=== PATIENT | male | born 1970 | race Caucasian/White ===

== ENCOUNTER 2020-05-07 14:40 | Inpatient (IN) | payer OTHER ==
--- NOTE | 2020-05-07 15:26 | RAD ---
Exam: Chest one view HISTORY:Mental crisis. Unrestrained x4 days. Comparison: None FINDINGS: Cardiac silhouette: Normal Aorta: Unremarkable Pulmonary vessels: Normal Costophrenic angles: Clear LUNGS: No masses or consolidation. Scarring and/or atelectasis in the right lung base with minimal bl unting of the costophrenic angle. Pneumothorax: None Osseous abnormalities: None IMPRESSION: No acute cardiopulmonary process.
[2020-05-07 16:04] LABS: Hemoglobin 16.7 g/dL (14.0-18.0); Mean Corpuscular HGB CONC 33.8 g/dL (32.0-36.0); Mean Corpuscular Hemoglobin 31.2 pg (27.0-31.0); Mean Corpuscular Volume 92.4 fL (78.0-98.0); Mean Platelet Volume 6.6 fL (7.4-10.4); Platelet Count 260 thou/uL (130-400); RBC Distribution Width 13.6 % (11.5-14.5); Red Blood Cell (RBC) Count 5.34 mill/uL (4.70-6.10)
[2020-05-07 16:14] LABS: Bacteria/HPF None Seen HPF (None Seen); Bilirubin Negative (Negative); Blood, Urine Negative (Negative); Clarity Clear (Clear); Glucose, Urine (Dipstick) Normal (Negative); Ketone, Urine Greater than 150 mg/dL (Negative); Leukocyte Negative Leu/uL (Negative); Mucous/LPF Rare LPF (<2+); Nitrite Negative (Negative); Protein, Urine (Dipstick) 30 mg/dL (Neg-Trace); Specific Gravity, Urine 1.026 (1.002-1.036); Squamous Epithelial 0-3 HPF (0-3); WBC/HPF 0-3 HPF (0-3)
[2020-05-07 16:17] LABS: Band 7 % (5-11); Eosinophils 2 % (0-10); Lymphocytes 49 % (21-51); MDiff Complete? YES; Monocytes 8 % (0-10); Neutrophil 34 % (42-75); Platelet Morphology Comment Appears Adequate; RBC Morphology Normal
[2020-05-07 16:21] LABS: Medtox Reader # READER 4; Phencyclidine (PCP) Not Detected (NotDetected); THC/Cannabinoid Screen Not Detected (NotDetected)
[2020-05-07 16:22] LABS: Amphetamine Not Detected (NotDetected); Barbiturates Screen Not Detected (NotDetected); Benzodiazepine Screen Not Detected (NotDetected); Cocaine Metabolite Screen Not Detected (NotDetected); Medtox Control Line Valid? VALID (VALID); Methadone Not Detected (NotDetected); Methamphetamine Not Detected (NotDetected); Opiate Screen Not Detected (NotDetected); Oxycodone Screen Not Detected (NotDetected); Tricyclic Screen Not Detected (NotDetected)
[2020-05-07 16:29] LABS: Acetaminophen Less than 6.0 mcg/mL (10.0-30.0); Alcohol Less than 10 mg/dL (Less than 10); Salicylate Less than 8.0 mg/dL (15.0-30.0)
[2020-05-07 16:30] LABS: ALT (SGPT) 26 U/L (8-55); AST (SGOT) 42 U/L (5-34); Albumin 4.2 g/dL (3.5-5.0); Alkaline Phosphatase 112 U/L (40-110); Anion Gap 24 mmol/L (10-20); BUN (Urea Nitrogen) 18 mg/dL (8.9-20.6); Bilirubin, Total 0.9 mg/dL (0.2-1.2); Calc. Creatinine Clearance 0 mL/min (70-130); Calcium 9.6 mg/dL (7.8-10.44); Carbon Dioxide 14 mmol/L (22-29); Chloride 106 mmol/L (98-107); Estimated GFR-MDRD 66; Globulin 6.1 g/dL (2.4-3.5); Potassium 4.7 mmol/L (3.5-5.1); Protein, Total 10.3 g/dL (6.0-8.3); Sodium 139 mmol/L (136-145)
[2020-05-07 16:35] LABS: Glucose 54 mg/dL (70-105)
--- NOTE | 2020-05-07 17:24 | PDOC.HHP ---
Hospitalist HPI - History of Present Illness Hunger Strike History of Present Illness: Mr. 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 Pt reportedly stole a backpack, which he reports was a misunderstanding and that he "picked up the wrong backpack". Patient has been on a hunger strike for the past four days and has not had anything to eat, but is still drinking water. Pt reports that he has had AIDS for 25 years and has become resistant to most medications except for Truvada. He expresses extreme fear, crying that the stress of being in senior care will make his body reject the medications so he has stopped taking these as well so that he can "save them". Currently he denies any chest pain, SOB, abdominal pain. During interview patient persistently interrupts conversation to state "[place] gave me 100$ and needs me to help the homeless.". He denies SI/HI, despite hunger strike and states he "made a promise to show the officers this was only a misdemeanor". In the ED initial vital signs 136/92, 98, 18, 95% on RA> H/H 16.7/49.4, WBC 4.0. BUN/Cr 18/1.18. Na 139. K 4.7. Anion gap of 24. Urine positive for ketones. Lactic acid 1.4. Troponin <0.01. Pt received banana bag in ED. Patient evaluated by EMHR who determined that the pt needed to be medically cleared with appropriate treatment for his HIV and cachexia before psychiatric facility would accept. Hospitalist ROS - Review of Systems Constitutional: denies: fever, chills, sweats Eyes: denies: vision change ENT: denies: mouth pain Respiratory: denies: cough, shortness of breath, hemoptysis Cardiovascular: denies: chest pain, palpitations, orthopnea Gastrointestinal: reports: diarrhea. denies: nausea, vomiting Genitourinary: denies: dysuria Musculoskeletal: denies: neck pain Skin: denies: rash, lesions Neurological: denies: weakness, numbness, incoordination, seizures Other: ROS limited by patient's flight of ideas and delusions. - Medication Medications: Current medications include: Truvada Bactrim Multivitamin Isentress Ensure Chlorhexidine mouth wash NKDA Hospitalist History - Past Medical History Other Medical History: Past medical history includes: HIV, AIDS PCP HIV Retinitis Schizophrenia Homelessness Hepatitis C Hepatitis B Ulcerative Colitis Hematuria Anxiety Hypothyroidism - Past Surgical History Other Surgical History: Past surgical history includes R tibial surgery R eye surgery - Family History Other Family History: Pt not able to report family history - Social History Smoking Status: Former smoker Tobacco Type: cigarettes Alcohol: reports: None Drugs: reports: none (Reports former drug use) Living Situation: Homeless Activity level: independent ambulation - Exam General Appearance: awake alert General - other findings: Patient appears anxious, cachectic Eye: anicteric sclera Eye - other findings: R eye with clouding, pt is blind in R eye ENT: dry oral mucosa Neck: no JVD, no carotid bruit Heart: no murmur Heart - other findings: tachycardic Respiratory: CTAB, no wheezes, no rales, no ronchi, normal chest expansion, no tachypnea, normal percussion Gastrointestinal: soft, non-tender, non-distended, normal bowel sounds, no palpable masses, no hepatomegaly, no splenomegaly, no bruit Extremities: no cyanosis, no clubbing, no edema Skin: normal turgor, no lesions, no rashes Neurological: normal sensation to touch, no weakness, no focal deficits, no new deficit Musculoskeletal: generalized weakness, diffuse muscle atrophy Psychiatric: oriented to person (Denies SI/HI), oriented to place, oriented to time Psychiatric - other findings: Flight of ideas, persistent delusions, labile emotions, pressured speech Hospitalist Results - Labs Result Diagrams: 05/07/20 15:23 05/07/20 15:23 Lab results: WBC 4.0 thou/uL (4.8-10.8) L 05/07/20 15:23 Hgb 16.7 g/dL (14.0-18.0) 05/07/20 15:23 Hct 49.4 % (42.0-52.0) 05/07/20 15:23 MCV 92.4 fL (78.0-98.0) 05/07/20 15:23 Plt Count 260 thou/uL (130-400) 05/07/20 15:23 Band Neuts % (Manual) 7 % (5-11) 05/07/20 15:23 Sodium 139 mmol/L (136-145) 05/07/20 15:23 Potassium 4.7 mmol/L (3.5-5.1) 05/07/20 15: Chloride 106 mmol/L (98-107) 05/07/20 15: Carbon Dioxide 14 mmol/L (22-29) L 05/07/20 15: BUN 18 mg/dL (8.9-20.6) 05/07/20 15: Creatinine 1.18 mg/dL (0.7-1.3) 05/07/20 15: Glucose 54 mg/dL (70-105) L* 05/07/20: Lactic Acid 1.4 mmol/L (0.5-2.2) 05/07/20: Calcium 9.6 mg/dL (7.8-10.44) 05/07/20: Total Bilirubin 0.9 mg/dL (0.2-1.2) 05/07/20: AST 42 U/L (5-34) H 05/07/20: ALT 26 U/L (8-55) 05/07/20 15: Alkaline Phosphatase 112 U/L (40-110) H 05/07/20: Troponin I Less than 0.010 ng/mL (< 0.028) 05/07/20: Serum Total Protein 10.3 g/dL (6.0-8.3) H 05/07/20: Albumin 4.2 g/dL (3.5-5.0) 05/07/20: Urine Ketones Greater than 150 mg/dL (Negative) A 05/07/20 16:00 Urine Blood Negative (Negative) 05/07/20 16:00 Urine Nitrite Negative (Negative) 05/07/20 16:00 Ur Leukocyte Esterase Negative Xiang/uL (Negative) 05/07/20 16:00 Urine RBC 4-6 HPF (0-3) A 05/07/20 16:00 Urine WBC 0-3 HPF (0-3) 05/07/20 16:00 Ur Squamous Epith Cells 0-3 HPF (0-3) 05/07/20 16:00 Urine Bacteria None Seen HPF (None Seen) 05/07/20 16:00 Hospitalist H&P A/P - Plan Plan: HIV Hx of HIV for 25 years per patient. Patient recently arrested and refusing to take medications, on hunger strike. Pt reports he has become resistant to most HIV medications, except for Truvada and Isentress. Reports history of PCP pneumonia and HIV retinitis. Will check CD4 count and consult ID for further medication guidance. Plan -CD4 count -ID consult -Daily CBC, BMP Schizophrenia Hx of schizophrenia with psychosis. Police reports that pt has been delusional. On exam, patient with pressured speech, flight of ideas. Denies SI/HI. Wishes to continue hunger strike. Is agreeable to fluids. [facility] evaluated patient and determined he needs to be medically cleared, including treatment of his HIV before a psychiatric facility would accept. Patient not currently on any psychiatric medications. Plan -[facility] to re-evaluate once medically cleared Malnutrition Patient with malnutrition at baseline with cachexia. Has been on hunger strike for four days, but has been drinking water. I asked patient to pause his hunger strike while in the hospital and he has refused. he is amenable to IV fluids. Will try nutrition shake and encourage PO intake. Labs show elevated anion gap 24 and urine ketones are positive. Plan -D5 LR -Ensure Enlive -Encourage PO intake DVT prophylaxis: SCDs FULL CODE Case discussed with attending physician, Dr. Vazquez.
--- NOTE | 2020-05-07 18:02 | PDOC.EVN ---
Event Note - Event Note Event Note: Pt evaluated and discussed with JULIUS Solano. Pt with schizophrenia and in psychotic state here for initiation of medication for HIV so that he can be transferred from the halfway to a psychiatric floor for treatment. Pt currently on a hunger strike, no PO intake for 5 days. he expresses concern about being stressed in halfway, and the meds that are not resistant to HIV will stop working. He reports being famous in the [place], on multiple tv shows, and is in this community to do the work of [employer]. VS reviewed Gen - alert, responsive, cachectic Lungs - ctab Heart - no audible murmurs Abd - soft, +BS ext - no edema Labs reviewed - hypoglycemia, leukopenia Imp: Schizophrenia with psychosis HIV untreated Cachexia Current social situation of being in halfway Hypoglycemia Metabolic acidosis -in the context of hunger strike Plan: - obs status - ID consult - check CD4 - pt states he will consider a vegetarian meal, although expresses that it will break his hunger strike that he is doing to be released from halfway - dextrose containing IVF dvt prophy - ambulatory gi prophy - not indicated code status full reviewed plan of care with patient, no questions at end of eval
[2020-05-07 18:35] LABS: Cardiac Risk 7.1 (Less than 4.5)
[2020-05-07 20:06] VITALS: BMI 17.2
[2020-05-07] MEDS: Dextrose 5%-Lactated Ringers 1,000 ML IV SCH (21:36)
[2020-05-08] MEDS: Dextrose 5%-Lactated Ringers 1,000 ML IV SCH ×2 (06:28→17:07)
[2020-05-08 06:34] LABS: Hemoglobin 13.2 g/dL (14.0-18.0); Mean Corpuscular HGB CONC 33.7 g/dL (32.0-36.0); Mean Corpuscular Volume 92.2 fL (78.0-98.0); Mean Platelet Volume 6.8 fL (7.4-10.4); Platelet Count 275 thou/uL (130-400); RBC Distribution Width 13.6 % (11.5-14.5); Red Blood Cell (RBC) Count 4.24 mill/uL (4.70-6.10); White Blood Cell (WBC) Count 4.4 thou/uL (4.8-10.8)
[2020-05-08 06:42] LABS: Anion Gap 12 mmol/L (10-20); BUN (Urea Nitrogen) 12 mg/dL (8.9-20.6); Calc. Creatinine Clearance 87 mL/min (70-130); Calcium 8.5 mg/dL (7.8-10.44); Carbon Dioxide 20 mmol/L (22-29); Chloride 110 mmol/L (98-107); Estimated GFR-MDRD Greater than 90; Glucose 105 mg/dL (70-105); Potassium 3.9 mmol/L (3.5-5.1); Sodium 138 mmol/L (136-145)
[2020-05-08 07:23] LABS: Band 14 % (5-11); Eosinophils 6 % (0-10); Lymphocytes 41 % (21-51); MDiff Complete? YES; Monocytes 9 % (0-10); Neutrophil 30 % (42-75); RBC Morphology Normal
[2020-05-08] MEDS ORDERED: Multivitamins, Adult 10 ML, Thiamine HCl 100 MG, Folic Acid 1 MG in Dextrose 5 %-0.45 %... IV SCH (09:00)
--- NOTE | 2020-05-08 10:45 | PDOC.HOSPP ---
- Subjective Encounter Date: 05/08/20 Encounter Time: 09:15 Subjective: Patient states he is feeling wonderful today. He is nervous about starting a regimen for his HIV, he states that he has increased stress being in nursing home and when this happens the regimen does not work as well and he is worried about becoming resistant to the last treatment available to him. Currently awaiting consultation with infectious disease. - Objective Vital Signs & Weight: Vital Signs (12 hours) Temp Pulse Resp BP Pulse Ox 05/08/20 08:06 98.2 F 74 16 92/61 94 L 05/08/20 04:00 98.0 F 63 20 94 L 05/08/20 00:38 98.9 F 82 20 93/60 95 Weight Weight 123 lb 7 oz I&O: 05/07/20 05/08/20 05/09/20 06:59 06:59 06:59 Intake Total 2000 Output Total 1000 Balance 1000 Result Diagrams: 05/08/20 05:32 05/08/20 05:32 Additional Labs: Accuchecks 05/07/20 15:18 POC Glucose 52 L* Hospitalist ROS - Medication Medications: Active Medications Generic Name Dose Route Start Last Admin Trade Name Freq PRN Reason Stop Dose Admin Dextrose/Lactated Ringer's 1,000 mls @ 75 mls/hr 05/07/20 17:30 05/08/20 06:28 D5 Lr IV Not Given .[id number] ALICE - Exam General Appearance: NAD, awake alert Eye - other findings: Right eye with clouding ENT: moist mucosa Heart: RRR, no murmur, no gallops, no rubs, normal peripheral pulses Respiratory: CTAB, no wheezes, no rales, no ronchi, normal chest expansion Gastrointestinal: soft, non-tender, non-distended, normal bowel sounds Musculoskeletal: diffuse muscle atrophy Psychiatric: A&O x 3 Hosp A/P - Plan HIV Patient has not been taking his medications as he is worried he will become resistant to them Awaiting CD4 count and ID consultation Daily CBC, BMP Schizophrenia Flight of ideas during exam Not currently on a hunger strike anymore, currently eating breakfast Needs to be medically cleared including treatment of his HIV before facility will accept Malnutrition Patient currently asking for diet with more protein Continue to monitor lab work Ensure Enlive Patient discussed with Dr. Vazquez.
[2020-05-08 11:03] LABS: SARS-CoV-2 MS2 Positive; SARS-CoV-2 N Gene Negative; SARS-CoV-2 S Gene Negative; SARS-CoV-2 by NAA Not Detected (NotDetected); SARS-CoV-2 orf1ab Negative
[2020-05-09 06:21] LABS: Anion Gap 12 mmol/L (10-20); BUN (Urea Nitrogen) 8 mg/dL (8.9-20.6); Calc. Creatinine Clearance 98 mL/min (70-130); Calcium 9.1 mg/dL (7.8-10.44); Carbon Dioxide 24 mmol/L (22-29); Chloride 107 mmol/L (98-107); Estimated GFR-MDRD Greater than 90; Glucose 94 mg/dL (70-105); Sodium 139 mmol/L (136-145)
[2020-05-09 06:29] LABS: Eosinophils 3 % (0-10); Hemoglobin 13.7 g/dL (14.0-18.0); Lymphocytes 72 % (21-51); MDiff Complete? YES; Mean Corpuscular HGB CONC 32.9 g/dL (32.0-36.0); Mean Corpuscular Hemoglobin 30.5 pg (27.0-31.0); Mean Corpuscular Volume 92.6 fL (78.0-98.0); Mean Platelet Volume 6.8 fL (7.4-10.4); Monocytes 10 % (0-10); Neutrophil 14 % (42-75); Platelet Count 247 thou/uL (130-400); Platelet Morphology Comment Appears Adequate; RBC Distribution Width 13.7 % (11.5-14.5); Reactive Lymphocytes 1 % (0-10); White Blood Cell (WBC) Count 4.3 thou/uL (4.8-10.8)
[2020-05-09] MEDS: Dextrose 5%-Lactated Ringers 1,000 ML IV SCH ×2 (09:40→20:01)
[2020-05-09] MEDS ORDERED: Ondansetron PF 4 MG/2 ML Vial IVP PRN (11:32)
[2020-05-09] MEDS ORDERED: Acetaminophen 325 MG TAB PO PRN (11:32)
[2020-05-09] MEDS ORDERED: Ondansetron ODT 4 MG TAB PO PRN (11:32)
[2020-05-09] MEDS: Famotidine 20 MG TAB PO SCH (20:00)
--- NOTE | 2020-05-09 22:33 | CON ---
DATE OF CONSULTATION: 05/09/2020 REASON FOR CONSULTATION: HIV seropositive status in a patient, who has been in the [facility] nursing home for the past 2 months. HISTORY OF PRESENT ILLNESS: Mr. Montelongo has a diagnosis of some form of psychosis and here in the initial history, it is stated that he is schizophrenic, but it could be a just a manic psychosis and he has a longstanding history of HIV seropositive status and previously treated elsewhere mostly in [place]. He has also been in a situation of homelessness for a while. He has been involved in a [employer] activities towards the homeless associated with spiritual oriented practices. He does fundraisers and distributes backpacks and so on. But for some reason, he got involved in the [employer] and not clear to me exactly what happened, but he was brought in to [facility]. It is not clear to me what the reason I guess because he went into a hunger strike. He does not recall the last time he was on antiretroviral therapy and he has somewhat delusional thinking process regarding his antiretroviral medicines. He states that the only medication that his HIV response to is Isentress and Truvada, which is very unlikely since those are not characterized by significant amount of barrier towards the HIV resistance development, so one would not expect these to be the last remaining options as he states during my interview. Right now, he denies any headaches. He has chronic blindness for the past year and a half two years from reported infection in the right eye. He denies any odynophagia or dysphagia. The left eye with a few scotomas, but are floaters and he has no cough or sputum production. No chest pain. No abdominal pain. No diarrhea. No genitourinary symptoms. No joint symptoms. No neurological symptoms. MEDICAL HISTORY: Longstanding HIV infection with erratic intake of antiretroviral therapy and chronic hepatitis C with unknown treatment status. Psychiatric diagnosis, which is stated as schizophrenia, but most likely it is some form of manic psychosis. 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 He has some issues with his kidneys with hematuria intermittently. SOCIAL HISTORY: He is homeless for the most part. Former user of cocaine and methamphetamine. He used to smoke, but no alcoholic beverage use. ALLERGIES: NONE. MEDICATIONS: He was not really taking any medications, supposed to be on trimethoprim/sulfamethoxazole, Truvada, and Isentress. PHYSICAL EXAMINATION: VITAL SIGNS: With a T-max 98.9, blood pressure 107/72, heart rate 73, respiratory rate 18, and O2 saturation 93 to 97 room air. GENERAL: He does not appear in distress, he is fidgety, and has flight of ideas, but he seems to be quite pleasant and is not aggressive or hostile. SKIN: He has a peripheral IV access and is voiding on his own account actually in the urinal because he has a cuff. He has no lymphadenopathy. HEENT: Some element of temporal wasting. The left eye movements are intact, the right too, but there is opacification of the cornea on the right side. He has only light perception on the right side. The left side, his vision is 20/20 and the oral cavity shows no moapa dentures remain in place. Oral mucosa is normal. No thrush. NECK: Supple. No jugular vein distention. LUNGS: Symmetric clear breath sounds. HEART: S1 and S2. Regular rate. No S3 or S4. ABDOMEN: Soft, not distended or tender. No ascites. No bladder distention. EXTREMITIES: No joint inflammatory activity. No edema. Pulses are 1+ in dorsalis pedis. Plantar responses are flexor. Moves extremities equally. NEUROLOGIC: He knows his name and where he is and is oriented x3. He got some flight of ideas, but a lot of the stuff he told me appeared to be a legitimate and one can verify that by a quick cursory look in the Internet. LABORATORY DATA: White cell count 4.0 and 4.3, hemoglobin 13.7, platelets 247, 14% neutrophils, and 72% lymphocytes. The total lymphocyte count is 2800. Sodium 139, creatinine 0.72, AST 42, ALT 26, alkaline phosphatase 112, serum total protein 10.3, and albumin 4.2. Urine, 0 to 3 wbc's and 30 protein. Toxic screen was negative. SARS-CoV was negative. Chest x-ray with no acute cardiopulmonary process. ASSESSMENT: 1. Either schizophrenia or some form of manic psychosis. 2. Homelessness. 3. Prior drug use, which has been in remission for few years now. 4. Longstanding human immunodeficiency virus infection, prior as pneumocystis index diagnosis with poor adherence to antiretroviral therapy due to some delusional thinking processes that have prevented him from taking it on schedule. 5. Incarceration at the [facility] nursing home for some misdemeanor according to patient for the past 2 months. 6. Hunger strike. DISCUSSION: This is a quite unique case. A lot of the things the patient states are actually legitimate and one can find references in the Internet. He does have all this background of work with the homeless, etc., but evidently he needs to be on antiretroviral therapy, waiting on the CD4 cell count viral load. He will need to be on some antiretroviral therapy. The combination of Isentress and Truvada does not have a high barrier for resistant particularly Isentress, so it is hard to believe that this would be the last available option for him as he states. It does not appear that he has any opportunistic infectious process at this time, most of the issues are related to his misdemeanor that led to the current incarceration, so it looks like he needs more handyman than a doctor right now, but I will be glad to review his CD4 cell count viral load and discuss with them the options that he might have. Usually when I ordered genotype for resistance test in the hospital, they do not like to pay for it, so I am not going to order at this moment. I will be able to follow him in the outpatient setting without any issues and so, he will be glad to run a genotype on the outpatient setting and try to convince him to take his antiretroviral medication and pneumocystis prophylaxis. Also, it would be important to provide him with treatment for his psychiatric illness. Job ID: [id number] RHETT
--- NOTE | 2020-05-09 23:24 | PDOC.HOSPP ---
- Subjective Encounter Date: 05/09/20 Encounter Time: 14:00 Subjective: Patient seen and examined for generalized weakness with significant weight loss. No new complaints. - Objective Vital Signs & Weight: Vital Signs (12 hours) Temp Pulse Resp BP Pulse Ox 05/09/20 20:16 98.0 F 84 18 116/76 92 L Weight Admit Weight 123 lb 7.008 oz Weight 123 lb 7 oz I&O: 05/08/20 05/09/20 05/10/20 06:59 06:59 06:59 Intake Total 1999 1597 2347 Output Total 999 2255 1999 Balance 1000 -200 347 Result Diagrams: 05/09/20 05:43 05/09/20 05:43 Hospitalist ROS - Review of Systems Respiratory: denies: cough, dry, shortness of breath, hemoptysis, SOB with excertion, pleuritic pain, sputum, wheezing, other Cardiovascular: denies: chest pain, palpitations, orthopnea, paroxysmal noc. dyspnea, edema, light headedness, other - Medication Medications: Active Medications Generic Name Dose Route Start Last Admin Trade Name Freq PRN Reason Stop Dose Admin Famotidine 20 mg 05/09/20 21:00 05/09/20 20:00 Famotidine 20 Mg Tab PO 20 mg BID ALICE Administration Dextrose/Lactated Ringer's 1,000 mls @ 75 mls/hr 05/07/20 17:30 05/09/20 20:01 D5 Lr IV 1,000 mls .[id number] ALICE Administration - Exam General Appearance: ill appearing Neck: supple, no JVD Heart: RRR, no gallops Respiratory: no wheezes, no ronchi Gastrointestinal: soft, non-tender, normal bowel sounds Extremities: no cyanosis, no clubbing Neurological: no new deficit Psychiatric: A&O x 3 Hosp A/P - Plan DVT proph w/SCDs Abnormal behavior Chronic HIV/AIDS Severe protein calorie malnutrition/Cachexia Schizophrenia Chronic anemia suspected due to nutritional deficiency Hypoglycemia Dyslipidemia Metabolic acidosis Plan: [facility] input appreciated. Per MR patient needs to improve her nutritional status. Await infectious disease for HIV management. Continue IV fluids due to poor appetite. [facility] to reevaluate once medically cleared continue Ensure 2 times a day. A.m. labs. Continue other medications as above
[2020-05-10 06:06] LABS: Phosphorus 4.3 mg/dL (2.3-4.7)
[2020-05-10 06:08] LABS: Anion Gap 17 mmol/L (10-20); BUN (Urea Nitrogen) 7 mg/dL (8.9-20.6); Calc. Creatinine Clearance 104 mL/min (70-130); Calcium 9.7 mg/dL (7.8-10.44); Carbon Dioxide 23 mmol/L (22-29); Chloride 103 mmol/L (98-107); Estimated GFR-MDRD Greater than 90; Glucose 83 mg/dL (70-105); Magnesium 1.7 mg/dL (1.6-2.6); Potassium 4.5 mmol/L (3.5-5.1); Sodium 138 mmol/L (136-145)
[2020-05-10 06:19] LABS: Band 4 % (5-11); Eosinophils 2 % (0-10); Hemoglobin 14.1 g/dL (14.0-18.0); Lymphocytes 62 % (21-51); MDiff Complete? YES; Mean Corpuscular HGB CONC 32.8 g/dL (32.0-36.0); Mean Corpuscular Hemoglobin 30.6 pg (27.0-31.0); Mean Corpuscular Volume 93.2 fL (78.0-98.0); Monocytes 12 % (0-10); Neutrophil 20 % (42-75); Platelet Count 244 thou/uL (130-400); Platelet Morphology Comment Appears Adequate; RBC Distribution Width 13.6 % (11.5-14.5); RBC Morphology Normal; Red Blood Cell (RBC) Count 4.62 mill/uL (4.70-6.10); White Blood Cell (WBC) Count 4.4 thou/uL (4.8-10.8)
[2020-05-10] MEDS: Dextrose 5%-Lactated Ringers 1,000 ML IV SCH ×2 (08:08→20:22)
[2020-05-10] MEDS: Famotidine 20 MG TAB PO SCH ×2 (08:09→20:21)
--- NOTE | 2020-05-10 11:03 | PDOC.HOSPP ---
- Subjective Encounter Date: 05/10/20 Encounter Time: 11:01 Subjective: very talkative, prefers to repiticious descriptions of medical history - Objective Vital Signs & Weight: Vital Signs (12 hours) Temp Pulse Resp BP Pulse Ox 05/10/20 07:45 97.7 F 72 16 101/69 94 L Weight Admit Weight 123 lb 7.008 oz Weight 123 lb 7 oz I&O: 05/09/20 05/10/20 05/11/20 06:59 06:59 06:59 Intake Total 1597 3697 Output Total 2252 1800 Balance -658 -103 Result Diagrams: 05/10/20 05:11 05/10/20 05:11 Hospitalist ROS - Medication Medications: Active Medications Generic Name Dose Route Start Last Admin Trade Name Freq PRN Reason Stop Dose Admin Famotidine 20 mg 05/09/20 21:00 05/10/20 08:09 Famotidine 20 Mg Tab PO Not Given BID ALICE Dextrose/Lactated Ringer's 1,000 mls @ 75 mls/hr 05/07/20 17:30 05/10/20 08:08 D5 Lr IV 1,000 mls .[id number] ALICE Administration - Exam General Appearance: awake alert Neck: no JVD Heart: RRR, no murmur Respiratory: CTAB Gastrointestinal: soft, normal bowel sounds Extremities: no edema Hosp A/P (1) Schizophrenia Code(s): F20.9 - SCHIZOPHRENIA, UNSPECIFIED Status: Chronic Qualifiers: Schizophrenia type: unspecified Qualified Code(s): F20.9 - Schizophrenia, unspecified (2) HIV disease Code(s): B20 - HUMAN IMMUNODEFICIENCY VIRUS [HIV] DISEASE Status: Chronic (3) Leukopenia Code(s): D72.819 - DECREASED WHITE BLOOD CELL COUNT, UNSPECIFIED Status: Acute - Plan bizarre affect paranoid about what HIV med he will take eating now no acute medical issue discuss with ID
[2020-05-11] MEDS: Famotidine 20 MG TAB PO SCH ×2 (09:00→21:40)
[2020-05-11 10:38] LABS: LOG10 HIV-1 RNA 6.004 (.)
--- NOTE | 2020-05-11 10:56 | PDOC.HOSPP ---
- Subjective Encounter Date: 05/11/20 Encounter Time: 10:52 Subjective: mental status stable, no agressive behavior - Objective Vital Signs & Weight: Vital Signs (12 hours) Temp Pulse Resp BP Pulse Ox 05/11/20 09:04 97.9 F 77 18 98/66 94 L 05/11/20 07:24 97.7 F 77 16 86/57 L 91 L 05/10/20 23:34 98.9 F Weight Admit Weight 123 lb 7.008 oz Weight 123 lb 7 oz I&O: 05/10/20 05/11/20 05/12/20 06:59 06:59 06:59 Intake Total 3697 240 Output Total 3800 550 Balance -103 -310 Result Diagrams: 05/10/20 05:11 05/10/20 05:11 Hospitalist ROS - Medication Medications: Active Medications Generic Name Dose Route Start Last Admin Trade Name Freq PRN Reason Stop Dose Admin Famotidine 20 mg 05/09/20 21:00 05/11/20 09:00 Famotidine 20 Mg Tab PO Not Given BID ALICE Dextrose/Lactated Ringer's 1,000 mls @ 75 mls/hr 05/07/20 17:30 05/10/20 20:22 D5 Lr IV Not Given .[id number] ALICE - Exam General Appearance: awake alert Neck: no JVD Heart: RRR, no murmur Respiratory: CTAB Gastrointestinal: soft, non-tender, normal bowel sounds Extremities: no edema Hosp A/P (1) Schizophrenia Code(s): F20.9 - SCHIZOPHRENIA, UNSPECIFIED Status: Chronic Qualifiers: Schizophrenia type: unspecified Qualified Code(s): F20.9 - Schizophrenia, unspecified (2) HIV disease Code(s): B20 - HUMAN IMMUNODEFICIENCY VIRUS [HIV] DISEASE Status: Chronic (3) Leukopenia Code(s): D72.819 - DECREASED WHITE BLOOD CELL COUNT, UNSPECIFIED Status: Acute - Plan bizarre affect paranoid about what HIV med he will take no acute medical issue discuss with ID
[2020-05-11] MEDS: Dextrose 5%-Lactated Ringers 1,000 ML IV SCH (14:50)
[2020-05-11 17:14] LABS: %CD4 (Helper/Inducer) 3.3 % (30.8-58.5); Absolute CD4 89 /uL (359-1519); Lymphocytes/Gated Cell Count 2.7 x10E3/uL (0.7-3.1); Total Lymphocyte 53 % (Not Estab.)
--- NOTE | 2020-05-11 20:03 | PRG ---
DATE OF SERVICE: 05/11/2020 SUBJECTIVE: Mr. Montelongo is still in the hospital. 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 Right now he does have a headache. No respiratory symptoms. No abdominal pain. No genitourinary symptoms. OBJECTIVE: VITAL SIGNS: His temperature is normal. His BP is 97/65, pulse 99, respirations 16, O2 saturation anywhere from 92-94. LUNGS: Symmetric. Clear breath sounds. HEART: S1, S2. Regular rate. ABDOMEN: Soft, not distended. Moves all extremities equally. LABORATORY DATA: White cell count 4.4, hemoglobin 14, platelets 244 with 20% neutrophils, 4% bands and 62% lymphocytes and creatinine 0.68. Urinalysis 0-3 WBCs. CD4 cell count 89, and viral load 1,010,000. SARS-COVID was not detected. ASSESSMENT AND DISCUSSION: Longstanding human immunodeficiency virus infection with homelessness and this unusual situation where he has been accused of something probably he did not do and now he has been in critical access hospital retirement now for the past 2 months apparently and he is having concerns which I believe are legitimate regarding his health and he has refused to take anti-retroviral therapy because he is concerned that the situation is not conducive to a proper response, which I think it makes sense. I think that it does not make any sense to keep this gentleman in the retirement system right now. He does not belong there and he needs proper representation to allow him to be released and in the meantime he should continue on Truvada and Isentress here with addition of Bactrim as prophylaxis for Pneumocystis. It would be important to do a genotype study, but I think we are going to be able to do these only when he gets out and comes to see me in the clinic. Hopefully he can get out on [place]opez and be released so we can follow him up in the clinic. Job ID: [id number]
[2020-05-12] MEDS: Dextrose 5%-Lactated Ringers 1,000 ML IV SCH (03:05)
[2020-05-12] MEDS: Famotidine 20 MG TAB PO SCH (08:49)
[2020-05-12] MEDS ORDERED: Sulfameth/Trimethoprim DS 800-160mg TAB PO SCH (09:00)
[2020-05-12 10:52] VITALS: BP 110/78; TEMP 98
--- NOTE | 2020-05-12 13:12 | PDOC.HOSPP ---
- Subjective Encounter Date: 05/12/20 Encounter Time: 11:00 Subjective: Patient seen and examined. No new complaints. No overnight events - Objective Vital Signs & Weight: Vital Signs (12 hours) Temp Pulse Resp BP BP Pulse Ox 05/12/20 10:50 98.0 F 100 20 110/78 92 L 05/12/20 07:20 98.3 F 72 20 88/51 L 90 L Weight Admit Weight 123 lb 7.008 oz Weight 123 lb 7 oz I&O: 05/11/20 05/12/20 05/13/20 06:59 06:59 06:59 Intake Total 240 300 Output Total 550 500 Balance -310 -200 Result Diagrams: 05/10/20 05:11 05/10/20 05:11 Hospitalist ROS - Review of Systems ENT: denies: ear pain, ear discharge, nose pain, nose discharge, nose congestion, mouth pain, mouth swelling, throat pain, throat swelling, other Respiratory: denies: cough, dry, shortness of breath, hemoptysis, SOB with excertion, pleuritic pain, sputum, wheezing, other Cardiovascular: denies: chest pain, palpitations, orthopnea, paroxysmal noc. dyspnea, edema, light headedness, other Gastrointestinal: denies: nausea, vomiting, abdominal pain, diarrhea, constipation, melena, hematochezia, other Genitourinary: denies: dysuria, frequency, incontinence, hematuria, retention, other Musculoskeletal: denies: neck pain, shoulder pain, arm pain, back pain, hand pain, leg pain, foot pain, other - Medication Medications: Active Medications Generic Name Dose Route Start Last Admin Trade Name Katharine PRN Reason Stop Dose Admin Famotidine 20 mg 05/09/20 21:00 05/12/20 08:49 Famotidine 20 Mg Tab PO Not Given BID ALICE Dextrose/Lactated Ringer's 1,000 mls @ 75 mls/hr 05/07/20 17:30 05/12/20 03:05 D5 Lr IV Not Given .[id number] ALICE Trimethoprim/Sulfamethoxazole 1 tab 05/12/20 09:00 05/12/20 08:51 Sulfameth/Trimethoprim Ds 800-160mg Tab PO 1 tab DAILY ALICE Administration - Exam General Appearance: NAD, awake alert Eye: PERRL, anicteric sclera ENT: normocephalic atraumatic, no oropharyngeal lesions Neck: supple, symmetric, no JVD, no thyromegaly Heart: RRR, no murmur, no gallops, no rubs Respiratory: CTAB, no wheezes, no rales, no ronchi Gastrointestinal: soft, non-tender, non-distended, normal bowel sounds Extremities: no cyanosis, no clubbing, no edema Skin: normal turgor Neurological: no focal deficits Musculoskeletal: normal tone, normal strength Psychiatric: normal affect, normal behavior, A&O x 3 Hosp A/P (1) Leukopenia Code(s): D72.819 - DECREASED WHITE BLOOD CELL COUNT, UNSPECIFIED Status: Acute (2) HIV disease Code(s): B20 - HUMAN IMMUNODEFICIENCY VIRUS [HIV] DISEASE Status: Chronic (3) Schizophrenia Code(s): F20.9 - SCHIZOPHRENIA, UNSPECIFIED Status: Chronic Qualifiers: Schizophrenia type: unspecified Qualified Code(s): F20.9 - Schizophrenia, unspecified - Plan old records reviewed/req see discharge [facility] today
--- NOTE | 2020-05-12 13:19 | DIS ---
DATE OF ADMISSION: 05/09/2020 DATE OF DISCHARGE: 05/12/2020 DISCHARGE DISPOSITION: [facility]. PRIMARY DISCHARGE DIAGNOSIS: Human immunodeficiency virus. SECONDARY DISCHARGE DIAGNOSIS: Schizophrenia. PRIMARY PROCEDURES/OPERATION: None. RADIOLOGICAL INVESTIGATION: Chest x-ray showed no acute cardiopulmonary process. SIGNIFICANT LABORATORY DATA: WBC 4.4, hemoglobin 14.1, and platelet are 244. Sodium 138, creatinine 0.68, LDL 123. Urine drug screen, negative. Serum drug screen negative. CD4 count 89. COVID-19, negative. HIV, RNA, PCR elevated. DISCHARGE MEDICATION: 1. Isentress 100 mg p.o. bedtime. 2. Multivitamin one tablet daily. 3. Bactrim DS one tablet as directed for PCP prophylaxis. 4. Truvada 200 mg p.o. at bedtime. CONTRAINDICATION: None. CODE STATUS: Full code. INPATIENT ROOM SERVICE ATTENDANT: Dr. Lindsay. TEST RESULTS PENDING ON DISCHARGE: None. ALLERGIES: NO KNOWN DRUG ALLERGIES. DISCHARGE PLAN: Post hospital, the patient will follow up with primary care physician as well as Dr. Lindsay as instructed. HOSPITAL COURSE: A 50-year-old male who was admitted by . Please see H and P for more detail. The patient has HIV and he was not on any anti HIV medication. The patient was having difficulty taking the medication and medication was not working. The patient was in the hospital for almost Dr. Lindsay evaluated this patient. During this admission, HIV viral load and CD4 count was done. Based on that, Dr. Lindsay recommended to continue Isentress and Truvada. The patient will need outpatient genotype testing and follow up with Dr. Lindsay for evaluation. At this point, the patient is in the jail system and he is not able to get medication and patient is also not taking any medication. That contribute to his uncontrolled HIV status. Dr. Lindsay saw this patient and cleared him for discharge and he will follow up with him as an outpatient basis. PHYSICAL EXAMINATION: GENERAL: The patient is seen and examined at bedside today. VITAL SINGS: Currently temperature 98.0, pulse rate 100, respiratory rate 20, saturation 92% on room air, and blood pressure 110/78. Weight 123 pounds. GENERAL: The patient is currently alert and awake. No acute distress. HEENT: Head; normocephalic and atraumatic. NECK: Supple. No JVD. No meningeal signs of irritation. LUNGS: Clear to auscultation without any rhonchi or rales. CARDIAC: S1 and S2 regular. No murmur. No gallop. No rub. ABDOMEN: Soft and benign without any tenderness. EXTREMITIES: No edema. NEUROLOGIC: Nonfocal examination. Job ID: [id number] MTDD
== END 2020-05-12 14:04 | DRG 977 ==
LOC: EEVIPCON 14:40 → ERS 14:40 → T4-B 16:47 → OBSVTOIN 05-09 14:59
PROVIDERS: ADMIT Family Medicine; ATTEND Family Medicine
DX: B20 Human immunodeficiency virus [HIV] disease (principal); E43 Unspecified severe protein-calorie malnutrition; H30.891 Other chorioretinal inflammations, right eye; K51.90 Ulcerative colitis, unspecified, without complications; R64 Cachexia; Z68.1 Body mass index [BMI] 19.9 or less, adult; E87.2 Acidosis; F20.9 Schizophrenia, unspecified; Z20.828 Contact with and (suspected) exposure to other viral communicable diseases; H54.40 Blindness, one eye, unspecified eye; F41.9 Anxiety disorder, unspecified; E03.9 Hypothyroidism, unspecified; E16.2 Hypoglycemia, unspecified; D53.9 Nutritional anemia, unspecified; E78.5 Hyperlipidemia, unspecified; B18.2 Chronic viral hepatitis C; T73.0XXA Starvation, initial encounter; X58.XXXA Exposure to other specified factors, initial encounter; Z59.0 Homelessness; Z87.891 Personal history of nicotine dependence; Z79.899 Other long term (current) drug therapy
CPT/HCPCS: 36415; 36416; 71045; 80048; 80053; 80061; 80306; 80307; 81003; 81015; 83605; 83735; 84100; 84484; 85025; 85048; 86361; 87040; 87086; 87536; 87635; 93005; 94760; 96365; 96366; G0378; J3411; J7042; J7121; U0003